=== PATIENT | female | born 1990 | race Caucasian/White ===

== ENCOUNTER 2021-09-13 08:01 | Emergency (ER) | payer MEDICAID ==
[~2021-09-13] VITALS: Ht 154.9 cm; Wt 70.0 kg
[2021-09-13 08:04] VITALS: BP 126/96
--- NOTE | 2021-09-13 08:12 | NUR ---
PT HAS SORE ON THE RIGHT SIDE OF HEAD. SHE ALSO REPORTS HAVE SORE ON HER BACK IN THE PAST THAT BUGS WERE COMING OUT OF. SHE IS WORRIED SHE HAS RINGWORM OR SCABIES
== END 2021-09-13 08:40 | disposition home or self-care (01) ==
LOC: ER 08:01
DX: L98.9 Disorder of the skin and subcutaneous tissue, unspecified (principal); F15.10 Other stimulant abuse, uncomplicated; Z72.89 Other problems related to lifestyle; Z88.8 Allergy status to other drugs, medicaments and biological substances
CPT/HCPCS: 99281